=== PATIENT | male | born 1995 | race Caucasian/White ===

== ENCOUNTER → 2021-01-03 09:53 | Outpatient (BNVA) | payer OTHER, SELFPAY | PROVIDERS: Visit Provider Nurse Practitioner Family | DX: R06.83 Snoring (principal); G47.9 Sleep disorder, unspecified; G47.19 Other hypersomnia | CPT/HCPCS: 99202 ==

== ENCOUNTER → 2021-03-15 09:02 | Outpatient (REF) | payer OTHER, SELFPAY | LOC: HO.SL 09:02 | PROVIDERS: PCP Family Medicine; Visit Provider Nurse Practitioner Family | DX: G47.19 Other hypersomnia (principal); G47.9 Sleep disorder, unspecified; R06.83 Snoring | CPT/HCPCS: 95806 ==

== ENCOUNTER → 2021-07-17 19:13 | Outpatient (REF) | payer OTHER, SELFPAY | LOC: HO.SL 19:13 | PROVIDERS: Visit Provider Nurse Practitioner Family | DX: G47.33 Obstructive sleep apnea (adult) (pediatric) (principal) | CPT/HCPCS: 95811 ==

== ENCOUNTER 2021-10-31 09:52 | Day surgery (SDC) | payer OTHER, SELFPAY ==
--- NOTE | 2021-10-30 10:51 | HO.ANESPROP2 ---
Documented by User: Dona Shahid NP 10/30/21 10:51 HPI - Anesthesia Eval Consult details Narrative: 26yo M for Upper Endoscopy PMFSH Active Problems Active Problems: All Active Problems (Updated 10/25/21 @ 16:20 by [place]ia Duarte, RN) Snoring (Acute) Sleep disorder, unspecified (Acute) Excessive daytime sleepiness (Acute) Severe obstructive sleep apnea (Acute) Past Medical History Medical History (Updated 10/31/21 @ 11:57 by Tonie Mirza MD) Depression Environmental allergies GERD (gastroesophageal reflux disease) Obstructive sleep apnea Surgical History Surgical History (Updated 10/25/21 @ 16:21 by [place]ia Duarte, RN) No pertinent past surgical history Social History Social History Patient Tobacco Use Status: Former Tobacco user Tobacco use type: Cigarette Smoked in Last 30 Days: No Use of substances other than those prescribed or required for medical reasons: Yes Are you DNR?: No Advance Directives: No Advance Directives Information Provided: Yes Recently lost weight without trying: No Nutrition Risks: No Nutritional Risk Meds Allergies Allergy/AdvReac Type Severity Reaction Status Date / Time amoxicillin [AMOXICILLIN] Allergy Unknown UNKNOWN Verified 10/31/21 10:23 Home Medications Medication Instructions Recorded Confirmed Last Taken Type omeprazole 40 mg capsule,delayed 40 mg PO DAILY 01/03/21 10/25/21 10/31/21 History release Exam Exam Date and Time: October 30, 2021 1051 Assessment and Plan Assessment Anesthesia Assessment: Chart Reviewed Documented by User: Tonie Mirza MD 10/31/21 12:00 PMFSH Past Medical History Medical History (Updated 10/31/21 @ 11:57 by Tonie Mirza MD) Depression Environmental allergies GERD (gastroesophageal reflux disease) Obstructive sleep apnea Family History Family history of problems with anesthesia: No Surgical History Surgical History (Updated 10/25/21 @ 16:21 by Albania Duarte, RN) No pertinent past surgical history History of Problems with Anesthesia: No Social History Social History Patient Tobacco Use Status: Former Tobacco user Tobacco use type: Cigarette Smoked in Last 30 Days: No Use of substances other than those prescribed or required for medical reasons: Yes Are you DNR?: No Advance Directives: No Advance Directives Information Provided: Yes Recently lost weight without trying: No Nutrition Risks: No Nutritional Risk Meds Allergies Allergy/AdvReac Type Severity Reaction Status Date / Time amoxicillin [AMOXICILLIN] Allergy Unknown UNKNOWN Verified 10/31/21 10:23 Home Medications Medication Instructions Recorded Confirmed Last Taken Type omeprazole 40 mg capsule,delayed 40 mg PO DAILY 01/03/21 10/25/21 10/31/21 History release Exam Height,Weight and Vital Signs: Height 5 ft 5 in Weight 106.594 kg Vital Signs Temp Pulse Resp BP Pulse Ox 10/31/21 10:25 98.2 F 87 16 133/80 96 Airway Mallampati Class: IV TM Dist: >3cm Neck ROM: Full Loose/Missing/Broken Teeth: No Heart: RRR Lungs: CTAB Assessment and Plan Assessment Anesthesia Assessment: Anesthesia Plan Discussed Final Anesthetic Review Family History of Problems with Anesthesia: No History of Problems with Anesthesia: No NPO: Yes ASA Class: III Final Preanesthetic Review: No Changes in Pt Med Stat, Meds/Allgs Chart Reviewed, Consent Obtained/Reviewed and Anes Risks/Benef Reviewed Patient Risk: Intermediate Procedure Risk: Low Assessment/Block/Sedation in SS: Assess/Block/Sedation-SS Anesthetic Plan Anesthetic Plan: MAC: Disposition: Standard PACU
[2021-10-31 10:16] VITALS: BMI 39.1
[2021-10-31 10:25] VITALS: BP 133/80; PULSE 87; RESP 16; TEMP 36.8; O2SAT 96
[2021-10-31] MEDS: Lactated Ringers 1,000 ML 100 ML IVCONT (10:32)
--- NOTE | 2021-10-31 11:55 | MHC.SHP ---
Pre-Procedural Eval Section A Date of Service: 10/31/21 Section B Chief Complaint: reflux Details of Present Illness: see H&P no changes Relevant Family History (Specify if Yes): No Relevant Social History: None Present Medications: see Short Stay Collaborative assessment Medical History: No relevant PMH History of Previous Operations: No relevant previous surgery Allergies: Allergies Allergy/AdvReac Type Severity Reaction Status Date / Time amoxicillin [AMOXICILLIN] Allergy Unknown UNKNOWN Verified 10/31/21 10:23 Review of Systems Sugical H&P ROS: Negative: Constitution, Cardiovascular, Respiratory, Neurological, Psychiatric, Hem-Onc, Allergic/Immunologic, Gastrointestinal, Genitourinary, Musculoskeletal, Integumentary, Endocrine and Eyes/Ears/Nose/Throat Exam Surgical H&P Exam: Normal: HEENT, Normal: Heart, Normal: Lungs, Normal: Extremities, Normal: Abdomen, Normal: Skin and Normal: Neurological Plan Diagnosis/Plan: Unchanged I have reviewed the history and physical and performed a pertinent physical examination on my patient. No changes have occurred unless specified.
--- NOTE | 2021-10-31 12:24 | P.BOP_ITS ---
Brief Operative Note Date of Service: 10/31/21 Pre-op diagnosis: gerd Post-op diagnosis: same (hiatal hernia) Procedure: egd Surgeon: Kishore Villegas Anesthesia: MAC Was an Life Skills Specialist used for this Procedure?: No Estimated blood loss (mL): 5 Pathology: other (anral bxs, egj bxs) Condition: stable Disposition: PACU
[2021-10-31 12:30] VITALS: BP 121/63; PULSE 100; RESP 14; TEMP 36.7; O2SAT 96
[2021-10-31 12:45] VITALS: BP 115/69; PULSE 96; RESP 16; TEMP 36.7; O2SAT 96
--- NOTE | 2021-10-31 22:41 | OP_ITS ---
SURGEON: Kishore Villegas MD PREOPERATIVE DIAGNOSIS: POSTOPERATIVE DIAGNOSIS: PROCEDURE PERFORMED: ESTIMATED BLOOD LOSS: COMPLICATIONS: ANESTHESIA: ASSISTANTS: SPECIMENS: PROCEDURE: Upper endoscopy with biopsy. INDICATION: Gastroesophageal reflux disease. MEDICATIONS: Monitored anesthesia care. DESCRIPTION OF PROCEDURE: History and physical performed. The risks and benefits of the procedure were explained to the patient. Informed consent was obtained. The patient was placed in the left lateral decubitus position. The Olympus video gastroscope was introduced into the esophagus, stomach, and duodenum. Examination was performed. The scope was removed. He tolerated the procedure with some oxygen desaturation, which was managed by the Anesthesia department. He was returned to recovery room in stable condition. FINDINGS: Esophagus: There was no evidence of esophagitis or Yuen esophagus. Biopsies were obtained from the EG junction. There was a prolapsing hiatal hernia. Stomach: The stomach showed an antral nodule, consistent with a pancreatic rest. Biopsies were obtained from the nodule and from the antrum. Duodenum: The bulb and second portion were normal. IMPRESSION: 1. Gastroesophageal reflux disease. 2. Hiatal hernia. RECOMMENDATIONS: Follow up biopsy results. MD LUCIA Lovell/FATOU / [id number]
== END 2021-10-31 13:10 | disposition home or self-care (01) ==
PROVIDERS: PCP Family Medicine; Visit Provider Internal Medicine Gastroenterology
PROC: 0DJ08ZZ Inspection of Upper Intestinal Tract, Via Natural or Artificial Opening Endoscopic (ICD-10-PCS; CPT 43235; principal; 2021-10-31 11:10)
DX: K21.9 Gastro-esophageal reflux disease without esophagitis (principal); K29.60 Other gastritis without bleeding; K44.9 Diaphragmatic hernia without obstruction or gangrene; J30.2 Other seasonal allergic rhinitis; G47.33 Obstructive sleep apnea (adult) (pediatric); F32.9 Major depressive disorder, single episode, unspecified; Z79.899 Other long term (current) drug therapy; Z88.0 Allergy status to penicillin
CPT/HCPCS: 43239; 88305; 88342

== ENCOUNTER → 2021-11-21 15:00 | Outpatient (BNVA) | payer OTHER, SELFPAY | PROVIDERS: PCP Family Medicine; Visit Provider Nurse Practitioner Family | DX: G47.33 Obstructive sleep apnea (adult) (pediatric) (principal); G47.19 Other hypersomnia; R06.83 Snoring | CPT/HCPCS: 99212 ==

== ENCOUNTER 2023-08-06 09:07 | Outpatient (REF) | payer OTHER, SELFPAY ==
[2023-08-06 15:28] LABS: Cholesterol 176 mg/dL (<200); Glucose Fasting 89 mg/dL (60-99); HDL Cholesterol 37 mg/dL (>40); LDL Cholesterol Calculated 106 mg/dL (<100); Triglycerides 166 mg/dL (<150)
== END 2023-08-06 09:08 | disposition home or self-care (01) ==
LOC: HO.CHCLDS 09:07
PROVIDERS: Visit Provider Family Medicine
DX: E78.00 Pure hypercholesterolemia, unspecified (principal); Z83.3 Family history of diabetes mellitus
CPT/HCPCS: 36415; 80061; 82947

== ENCOUNTER 2024-12-11 14:20 | Outpatient (REF) | payer OTHER, SELFPAY ==
--- OUTSIDE RECORDS SUMMARY | 2024-12-11 14:26 | XMS_ITS | Clinical Summary ---
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) Onset: 05/18/2014 Added by: Jason Alvarez Other depressive disorder 05/18/2014 Overview (09/04/2018): Depression (311) Onset: 05/18/2014 Added by: Jason Alvarez Extrinsic asthma with exacerbation 10/25/2010 Overview (09/04/2018): Moderate asthma (exacerbation) (493.02) Onset: 10/25/2010 Added by: Patria Alexandra RB Immunizations Immunization Administration Dates Next Due DTP 02/02/2000, 7,1995, 996,1995 Hep B, ped/adol 1995,1995,1995 Hib (PRP-T) 07/22/1996, 6,1995, 995 IPV 02/02/2000, 6,1995, 995 Influenza, injectable, trivalent 03/27/2010 MMR 02/02/2000,07/22/1996 Meningococcal Conj (Menactra) MCV4P 03/03/2009 Tdap 11/28/2006 Varicella 03/03/2009,03/30/1996 Social History Tobacco Use Types Packs/Day Years Used Date Smoking Tobacco: Some Days Comments:Current Some Day Nikolas reid Sex and Gender Information Value Date Recorded Sex Assigned at Not on file Legal Sex Male 6:42 PM EDT Gender Identity Not on file Sexual Orientation Not on file Last Filed Vital Signs Vital Sign Reading Time Taken Comments Blood Pressure - - Pulse 88 03/27/2013 8:37 AM EDT Temperature 37.2 ??C (98.9 ??F) 12/16/2015 3:15 PM ED T Respiratory Rate - - Oxygen Saturation - - Inhaled Oxygen Concentration - - Weight 80.1 kg (176 lb 9.6 oz) 12/16/2015 3:15 P M EDT Height 163.8 cm (5' 4.5 ) 12/16/2015 3:15 PM EDT Body Mass Index 29.85 12/16/2015 3:15 PM EDT Plan of Treatment Health Maintenance Due Date Last Done Comments DTaP,Tdap,and Td Vaccines (7 - Td or Tdap) 11/28/2016 11/28/2006, 02/02/2000, 09/22/1996, Additional history exists Influenza Vaccines (#1) 2024 03/27/2010 COVID-19 Vaccine ( season) 2024 Hepatitis B Vaccines Completed 1995, 1995, 1995 HIB Vaccines Completed 07/22/1996, 09/29, 1995, Additional history exists IPV Vaccines Completed 02/02/2000, 09/29, 1995, Additional history exists MMR Vaccines Completed 02/02/2000, 07/22/1996 Meningococcal Vaccine Aged Out 03/03/2009 No alexei estela eligible based on patient's age to complete this topic Varicella Vaccines Completed 03/03/2009, 03/30/1996 HPV Vaccines Aged Out No longer eligi ble based on patient's age to complete this topic Hepatitis A Vaccines Aged Out No long er eligible based on patient's age to complete this topic Men B Vaccine Aged Out No longer elig ible based on patient's age to complete this topic Pneumococcal Vaccine Aged Out No long er eligible based on patient's age to complete this topic Care Teams Water Resource Manager Relationship Specialty Start Date End Date Lit Joseph MD [address] [place] [address] [place] [id number] PCP - General 11/06/17
[2024-12-11 16:39] LABS: Free T4 (Free Thyroxine) 0.98 ng/dL (0.71-1.85); Thyroid Stimulating Hormone 2.15 uIU/mL (0.32-4.0)
== END 2024-12-11 14:21 | disposition home or self-care (01) ==
LOC: HO.LAB 14:20
PROVIDERS: PCP Family Medicine; Visit Provider Family Medicine
DX: R53.83 Other fatigue (principal)
CPT/HCPCS: 36415; 84439; 84443